=== PATIENT | male | born 1980 | race Caucasian/White ===

== ENCOUNTER 2018-06-21 21:31 | Emergency (ER) | payer BC ==
[~2018-06-21] VITALS: Ht 175.2 cm; Wt 104.3 kg
[2018-06-21] MEDS ORDERED: Nizoral 2%15 GM T (21:54)
[2018-06-21 22:08] LABS: BILIRUBIN NEGATIVE (NEGATIVE); BLOOD NEGATIVE (NEGATIVE); CLARITY CLEAR (CLEAR); COLOR YELLOW (YELLOW); GLUCOSE NEGATIVE (NEGATIVE); KETONE NEGATIVE (NEGATIVE); LEUKO ESTERASE NEGATIVE (NEGATIVE); NITRITE NEGATIVE (NEGATIVE); SPECIFIC GRAVITY <= 1.005 (1.005-1.030); UROBILINOGEN 0.2 E.U./dl (0.2-1.0)
[2018-06-21 22:16] LABS: BACTERIA 1+; EPITHELIAL CELLS 0-2; RBC 0-2 rbc/hpf (0-2); WBC 0-2 wbc/hpf (0-5)
[2018-06-24 19:04] LABS: GONOCOCCUS BY NAA Negative (Negative)
== END 2018-06-21 22:23 | disposition home or self-care (01) ==
LOC: ED 21:31
PROVIDERS: Nurse Practitioner Family
DX: B35.6 Tinea cruris (principal)

== ENCOUNTER 2020-05-11 13:21 | Emergency (ER) | payer BC ==
[~2020-05-11] VITALS: Ht 175.2 cm; Wt 111.1 kg
[~2020-05-11 13:21] MED LIST: Nizoral 2%15 GM T
== END 2020-05-11 13:41 | disposition home or self-care (01) ==
LOC: ED 13:21
DX: R05 Cough (principal); J02.9 Acute pharyngitis, unspecified; R09.89 Other specified symptoms and signs involving the circulatory and respiratory systems; F17.200 Nicotine dependence, unspecified, uncomplicated; Z88.8 Allergy status to other drugs, medicaments and biological substances; Z79.899 Other long term (current) drug therapy; Z20.828 Contact with and (suspected) exposure to other viral communicable diseases

== ENCOUNTER → 2021-05-25 | Outpatient (CLI) | payer BC | END | disposition home or self-care (01) | LOC: COVID19 16:07 | PROVIDERS: ATTEND Internal Medicine | DX: Z11.52 Encounter for screening for COVID-19 (principal) ==

== ENCOUNTER → 2021-08-01 | Outpatient (CLI) | payer BC | END | disposition home or self-care (01) | LOC: COVID19 16:39 | PROVIDERS: ATTEND Internal Medicine | DX: U07.1 COVID-19 (principal) ==

== ENCOUNTER 2022-02-03 15:07 | Emergency (ER) | payer OTHER, BC ==
[~2022-02-03] VITALS: Ht 175.2 cm; Wt 111.1 kg
[2022-02-03] MEDS ORDERED: CYCLOBENZAPRINE10 MG PO (20:37)
== END 2022-02-03 20:50 | disposition home or self-care (01) ==
LOC: ED 15:07
DX: S16.1XXA Strain of muscle, fascia and tendon at neck level, initial encounter (principal); Z88.8 Allergy status to other drugs, medicaments and biological substances; W22.8XXA Striking against or struck by other objects, initial encounter; Y93.89 Activity, other specified; Y92.69 Other specified industrial and construction area as the place of occurrence of the external cause; Y99.9 Unspecified external cause status

== ENCOUNTER 2022-05-24 16:39 | Emergency (ER) | payer BC ==
[~2022-05-24] VITALS: Wt 111.1 kg
[~2022-05-24 16:39] MED LIST changes: +CYCLOBENZAPRINE10 MG PO
== END 2022-05-24 17:15 | disposition home or self-care (01) ==
LOC: ED 16:39
DX: H00.015 Hordeolum externum left lower eyelid (principal); Z88.8 Allergy status to other drugs, medicaments and biological substances

== ENCOUNTER → 2024-04-21 | Outpatient (CLI) | payer OTHER | END | disposition home or self-care (01) | LOC: CT 13:00 | PROVIDERS: ATTEND Nurse Practitioner Family | DX: K42.9 Umbilical hernia without obstruction or gangrene (principal); K76.0 Fatty (change of) liver, not elsewhere classified; N20.0 Calculus of kidney ==

== ENCOUNTER → 2024-07-02 | Outpatient (CLI) | payer OTHER | END | disposition home or self-care (01) | LOC: CARD 00:37 | PROVIDERS: ATTEND Internal Medicine | DX: R06.00 Dyspnea, unspecified (principal); R07.9 Chest pain, unspecified ==

== ENCOUNTER 2024-09-30 15:44 | Emergency (ER) | payer OTHER ==
[~2024-09-30] VITALS: Ht 175.2 cm; Wt 113.4 kg
[2024-09-30] MEDS ORDERED: NAPROSYN500 MG PO ×2 (16:14→16:30)
[2024-09-30] MEDS ORDERED: PENICILLIN VK500 MG PO ×2 (16:14→16:30)
[2024-09-30] MEDS ORDERED: PENICILLIN V POTASSIUM 500 MG TAB PO ONE (16:15)
[2024-09-30] MEDS ORDERED: NAPROXEN 250 MG TAB PO ONE (16:15)
== END 2024-09-30 16:32 | disposition home or self-care (01) ==
LOC: ED 15:44
DX: K02.9 Dental caries, unspecified (principal); Z88.8 Allergy status to other drugs, medicaments and biological substances

== ENCOUNTER → 2025-06-24 | Outpatient (CLI) | payer OTHER ==
[~2025-06-24] MED LIST changes: +IOHEXOL 350 MG/ML 100 ML VIAL IV ONE; +NAPROSYN500 MG PO; +PENICILLIN VK500 MG PO
== END | disposition home or self-care (01) ==
LOC: CT 09:59
PROVIDERS: ATTEND Urology
DX: N20.0 Calculus of kidney (principal)